=== PATIENT | male | born 1975 | race Hispanic/Latino ===

== ENCOUNTER → 2017-05-30 | Outpatient (CLI) | payer OTHER ==
--- NOTE | 2017-05-30 19:01 | Diagnostic Imaging Report ---
PROCEDURE:L-SPINE COMPLETE COMPARISON:None. INDICATIONS:LOWER BACK PAIN FINDINGS: There are 5 lumbar-type vertebral bodies. Minimal grade 1 anterolisthesis of S1 on L5. There are no acute, displaced fractures, dislocations, lytic or blastic lesions. Vertebral body heights are preserved. Bilateral oblique views show no spondylolysis. The sacroiliac joints are unremarkable. CONCLUSION: No acute abnormalities. Minimal grade 1 anterolisthesis of S1 on L5. Alfonso Vuong M.D. Dictated by: Alfonso Vuong M.D. on 05/30/2017 at 19:00 Electronically approved by: Alfonso Vuong M.D. on 05/30/2017 at 19:00
== END ==
LOC: RAD 16:39
PROVIDERS: ATTEND Family Medicine
DX: M54.5 Low back pain (principal); M54.16 Radiculopathy, lumbar region
CPT/HCPCS: 72110